=== PATIENT | male | born 1985 | race Caucasian/White ===

== ENCOUNTER 2024-01-27 10:27 | Outpatient (OUT) | payer MEDICARE, MEDICAID, SELFPAY ==
--- NOTE | 2024-01-27 10:37 | MR_ITS ---
The [address] [address] Patient Name: CHI JAMESON MRN: [id number] date: 1985 Sex: M Assigned Patient Location: MRI Current Patient Location: Accession/Order Number: [id number] Exam Date: 01/27/2024 10:47 Report Date: 01/28/2024 08:45 At the request of: DEE SCHROEDER Procedure: MR ankle LT wo con EXAM: MR ankle LT wo con REASON FOR EXAM: Osteochondritis Left Ankle M93.272. TECHNIQUE: Multiplanar, multisequence imaging of the left ankle was performed without contrast COMPARISON: None. FINDINGS: There is fusiform thickening and intermediate signal of the Achilles tendon with distal Achilles enthesophytes, consistent with tendinosis. No tear. The plantar fascia is intact. Laterally, the peroneal tendons demonstrate minimal thickening and intermediate signal with mild tenosynovitis. No tear. The superficial peroneal retinaculum is intact. The anterior talofibular ligament appears dysmorphic with intermediate signal likely reflecting prior intermediate to high-grade sprain/tear. The calcaneofibular ligament is thickened with intermediate signal likely reflecting prior sprain. No evidence of acute lateral ligamentous injury. Medially, the medial flexor tendons demonstrate normal thickness and signal without tendinosis or tear. Mild posterior tibial tenosynovitis. The deep deltoid ligament appears intact. The spring ligament is intact. Anteriorly, the anterior extensor tendons demonstrate normal thickness and signal without tendinosis or tear. There is bone marrow edema involving the cuboid bone as well as the subjacent lateral cuneiform. A discrete fracture line not identified. This potentially reflects low-grade stress response, potentially due to altered biomechanics. There is also mild edema involving the anterior process of the calcaneus. Discrete fracture not identified. No osteochondral defect identified involving the talar dome. The subtalar joints intact. A small tibiotalar effusion is present. The sinus tarsi is nonedematous. The midfoot is otherwise congruent. The plantar musculature demonstrates normal bulk and signal. Remaining soft tissues are unremarkable.. MR/MR ankle LT wo con IMPRESSION: 1. No definite evidence of an osteochondral defect identified. 2. Bone marrow edema involving the cuboid bone, and the lateral cuneiform as well as the anterior process of the calcaneus is nonspecific. Potentially reflects low-grade stress responses, which could be due to altered biomechanics. A discrete fracture line not identified. 3. Achilles tendinosis without tear. 4. Peroneal tendinosis and tenosynovitis without tear. 5. Mild posterior tibial tenosynovitis. 6. Sequela of prior ATFL sprain. No evidence of acute ligamentous injury identified. Electronically authenticated by: LOIS BYRNE Date: 01/28/2024 08:45
== END 2024-01-27 10:28 | disposition home or self-care (01) ==
LOC: MRI 10:31
DX: M93.272 Osteochondritis dissecans, left ankle and joints of left foot (principal); M76.62 Achilles tendinitis, left leg; M65.872 Other synovitis and tenosynovitis, left ankle and foot
CPT/HCPCS: 73721